=== PATIENT | female | born 1960 | race Caucasian/White ===

== ENCOUNTER → 2023-10-11 12:59 | Outpatient (REF) | payer MEDICARE, BC, SELFPAY | LOC: RAD 12:59 | PROVIDERS: ATTENDING PHYSICIAN Internal Medicine | DX: M81.0 Age-related osteoporosis without current pathological fracture (principal) | CPT/HCPCS: 77080 ==

== ENCOUNTER → 2024-06-12 13:06 | Outpatient (REF) | payer MEDICARE, BC, SELFPAY | LOC: RAD 13:06 | PROVIDERS: ATTENDING PHYSICIAN Nurse Practitioner Adult Health; FAMILY PHYSICIAN Internal Medicine | DX: R07.89 Other chest pain (principal); I49.8 Other specified cardiac arrhythmias | CPT/HCPCS: 71046 ==

== ENCOUNTER 2024-08-20 15:45 | Outpatient (RCR) | payer MEDICARE, BC, SELFPAY | END 2024-08-20 23:59 | disposition home or self-care (01) | LOC: RPT 15:45 | PROVIDERS: ATTENDING PHYSICIAN Surgery; FAMILY PHYSICIAN Internal Medicine | DX: N31.9 Neuromuscular dysfunction of bladder, unspecified (principal); Z73.6 Limitation of activities due to disability | CPT/HCPCS: 97140; 97163; 97530 ==

== ENCOUNTER 2024-09-17 15:56 | Outpatient (RCR) | payer MEDICARE, BC, SELFPAY | END 2024-09-17 23:59 | disposition home or self-care (01) | LOC: RPT 15:56 | PROVIDERS: ATTENDING PHYSICIAN Surgery; FAMILY PHYSICIAN Internal Medicine | DX: N31.9 Neuromuscular dysfunction of bladder, unspecified (principal); Z73.6 Limitation of activities due to disability | CPT/HCPCS: 97110; 97112; 97530 ==

== ENCOUNTER 2024-09-24 18:21 | Outpatient (RCR) | payer MEDICARE, BC, SELFPAY | END 2024-09-24 23:59 | disposition home or self-care (01) | LOC: RPT 18:21 | PROVIDERS: ATTENDING PHYSICIAN Surgery; FAMILY PHYSICIAN Internal Medicine | DX: N31.9 Neuromuscular dysfunction of bladder, unspecified (principal); Z73.6 Limitation of activities due to disability | CPT/HCPCS: 97014; 97110; 97112; 97530 ==

== ENCOUNTER 2024-10-14 17:33 | Emergency (ER) | payer MEDICARE, BC, SELFPAY ==
[2024-10-14 17:35] VITALS: BP 131/86
[2024-10-14 17:58] LABS: Hematocrit 40.5 % (37.0-47.0); Hemoglobin 14.0 g/dL (12.0-16.0); Mean Corp Hgb Conc. 34.6 g/dL (33.0-37.0); Mean Corpuscular Volume 91.2 fL (81.0-99.0); Nucleated Red Blood Cells % 0 %; Platelet Count 316 10^3/uL (130-400); Red Cell Dist. Width 12.3 % (11.5-14.5)
[2024-10-14 18:22] LABS: Troponin I < 0.012 ng/ml
[2024-10-14 18:32] LABS: ALT (SGPT) 18 U/L (0-35); AST (SGOT) 19 U/L (14-36); Albumin 4.7 g/dl (3.5-5.0); Alkaline Phosphatase 48 U/L (38-126); Blood Urea Nitrogen 13 mg/dl (7-17); Calcium 10.7 mg/dl (8.4-10.2); Carbon Dioxide 25 mmol/L (22-30); Chloride 107 mmol/L (98-107); Glucose 117 mg/dl (70-99); Potassium 3.8 mmol/L (3.5-5.1); Sodium 140 mmol/L (135-145); Total Protein 7.9 g/dl (6.3-8.2); eGFR > 60.00
[2024-10-14 19:33] VITALS: BMI 24.4
--- NOTE | 2024-10-14 21:27 | ED.GENMED ---
History of Present Illness
General
Chief Complaint: Dizziness
Time Seen by Provider: 10/14/24 20:04
Course
Orders/Labs/Results
Orders:
Orders
10/14/24 17:38
Electrocardiogram (*1) Urgent
Reason for Study: Chest Pain
EKG- Treatment ONCE
10/14/24 17:50
Complete Blood Count/With Diff Urgent
Comprehensive Metabolic Panel Urgent
Troponin I Urgent
10/14/24 21:15
CT Head W/o Iv Contrast Urgent
Comment:
Reason For Exam: dizziness, hit head 6 wk ago, MS in remission
10/14/24 21:27
Orthostatic VS- Treatment ONCE
Abnormal Lab Results
10/14/24
17:50
MCH 31.5 H pg
(27.0-31.0)
Absolute Monos (auto) 0.7 H 10^3/uL
(0.1-0.6)
Glucose 117 H mg/dl
(70-99)
Calcium 10.7 H mg/dl
(8.4-10.2)
10/14/24 17:50
10/14/24 17:50
Vital Signs
Initial and Last Documented VS:
Initial Vital Signs
Temp Pulse Resp BP Pulse Ox
97.5 F 65 18 131/86 99
10/14/24 17:35 10/14/24 17:35 10/14/24 17:35 10/14/24 17:35 10/14/24 17:35
Last Documented Vital Signs
Temp Pulse Resp BP Pulse Ox
97.5 F 60 17 131/86 99
10/14/24 17:35 10/14/24 21:15 10/14/24 21:15 10/14/24 17:35 10/14/24 17:35
*Pulse Oximetry
SaO2: 99
Oxygen Mode of Delivery: Room air
ED Attending Note
ED Attending Note
Patient seen and examined by attending physician: Yes
I performed a history and physical exam of patient and discussed management with resident, I reviewed resident's note and agree with documented findings and plan of care.: Yes
ED Attending Note:
64-year-old female history of MS recent increase the dose of her medication for urinary retention they later she developed dizziness worse with standing, she did have a fall a month or so ago struck her head here she is nonfocal neurologic exam she
is cooperative, normal mental status, labs noted EKG notable check CT of the head, orthostatics, in the meantime tell her to decrease dose of her med to her prior dose and follow-up with her outpatient physicians
-
Portions of this chart may have been created with voice recognition software.� Occasional wrong word or��sound alike� substitutions may have occurred due to the inherent limitations of voice recognition software.
Discharge Plan
Departure
Prescriptions:
No Action
cefdinir 300 MG capsule
300 mg PO BID Qty: 10 0RF
Referrals:
Em Davila MD [Family Provider, Internal Medicine]
Interventions
Interventions:
*Risk Screen - Suicide Last Done: 10/14/24 17:35
*General Assessment Last Done: 10/14/24 17:35
*Neglect/Abuse Screening Last Done: 10/14/24 19:33
*ED- Fall Risk Assessment Last Done: 10/14/24 19:33
*ED COVID-19 Vaccine History Last Done: 10/14/24 19:33
ED- Neurological Assessment Last Done: 10/14/24 19:33
ED- Cardiac Assessment Last Done: 10/14/24 19:33
Discharge Date and Time
Print Language: GERMAN
--- NOTE | 2024-10-14 21:29 | ED.GENMED ---
History of Present Illness
General
Chief Complaint: Dizziness
Source: patient and family
Exam Limitations: none
Time Seen by Provider: 10/14/24 20:04
Nursing documentation reviewed up to this point in time: agreed with
History of Present Illness
History of Present Illness:
Ms. Brooks Tucker is a 64-year-old female with a PMH notable for multiple sclerosis (in remission, diagnosed 30 years ago), panic disorder (on lorazepam), cardiac ablation (for A-fib) who is presenting for dizziness.
She noted history of dizziness that started 4 months ago 4 months ago when she started taking mirabegron for urinary retention, prescriber her urologist. She is aware that mirabegron is usually prescribed for urinary urgency. She came to the ED
today because she felt very dizzy yesterday. She also tried for the first time doubling her dose of mirabegron yesterday. Her urologist had told her dose but the patient has not taken the increased dose until yesterday. She she has fallen
multiple times when she felt dizzy. Her last fall was Father's Day weekend 6 weeks ago. She hit the back of her head but did not lose consciousness. She did not seek medical attention.
She describes the sensation as more of the room spinning, but it is hard for distinguish it from feeling faint. She holds onto counters in the wall when she walks as a precaution now.
She notices her vertigo is worse when she also drinks alcohol or takes lorazepam, which she does when she feels anxious.
She endorses feeling chest pain 2 days ago, which she attributes to feeling [place]. She endorses feeling her heart racing in the ED triage.
She denies recent URI symptoms.
Review of Systems
Review of Systems
All Other Systems: ROS reviewed and negative except as documented in HPI and ROS
EENT: Reports no symptoms (No ear pain)
Respiratory: Reports no symptoms
: Reports no symptoms (Retention)
Neurological: Reports other (Remaining left upper and lower limb weakness and numbness, and decreased vision in left eye from multiple sclerosis)
Psychiatric: Reports anxiety
Phy Exam
Physical Exam
Physical Exam:
General: In no acute distress, moist mucous membranes
Neuro:
Lenore-Hallpike maneuver negative
Left pupil more dilated than right
Symmetric palate elevation
Bilateral tympanic membranes pearly
5 strength to elbow flexion extension, shoulder flexion extension. leg with symmetric
Cardiovascular: Normal rate and rhythm
No pedal edema
Lungs: CTAB
GI: No tenderness to deep palpation
Normal bowel sounds
Course
Orders/Labs/Results
Orders:
Orders
10/14/24 17:38
Electrocardiogram (*1) Urgent
Reason for Study: Chest Pain
EKG- Treatment ONCE
10/14/24 17:50
Complete Blood Count/With Diff Urgent
Comprehensive Metabolic Panel Urgent
Troponin I Urgent
10/14/24 21:15
CT Head W/o Iv Contrast Urgent
Comment:
Reason For Exam: dizziness, hit head 6 wk ago, MS in remission
10/14/24 21:27
Orthostatic VS- Treatment ONCE
10/14/24 21:28
Orthostatic VS- Treatment ONCE
Abnormal Lab Results
10/14/24
17:50
MCH 31.5 H pg
(27.0-31.0)
Absolute Monos (auto) 0.7 H 10^3/uL
(0.1-0.6)
Glucose 117 H mg/dl
(70-99)
Calcium 10.7 H mg/dl
(8.4-10.2)
10/14/24 17:50
10/14/24 17:50
Vital Signs
Initial and Last Documented VS:
Initial Vital Signs
Temp Pulse Resp BP Pulse Ox
97.5 F 65 18 131/86 99
10/14/24 17:35 10/14/24 17:35 10/14/24 17:35 10/14/24 17:35 10/14/24 17:35
Last Documented Vital Signs
Temp Pulse Resp BP Pulse Ox
97.5 F 58 11 105/82 99
10/14/24 17:35 10/14/24 22:25 10/14/24 22:25 10/14/24 21:37 10/14/24 21:31
MDM/Problems Addressed
Differential Diagnosis Includes:
Orthostatic hypotension
Medication side effect
Medication synergistic effects: Alcohol, lorazepam
Bradycardia
Chronic subdural hematoma
Normal pressure hydrocephalus
Labyrinthitis
Vestibular neuritis
Less likely:
BPPV
Other arrhythmia
MDM/Problems Addressed:
Ms. Gracia Tucker is a 74-year-old female with PMH notable for multiple sclerosis who is presenting with dizziness, potentially due to normal pressure hydrocephalus. It may also be due to bradycardia, medication side effect, and/or medication
synergistic effect.
Orthostats: Positive. Systolic blood pressure dropped from 127 to 105 after standing. Diastolic with pressure and heart rate did not change significantly
CT head: slightly enlarged ventricles for age. Normal pressure hydrocephalus cannot be ruled out
CMP and CBC: Within normal limits
EKG: Sinus bradycardia
Troponin: Within normal limits
The patient has bradycardia and is on carvedilol 12.5 mg daily. Since bradycardia can contribute to vertigo, we will halve her dose.
Patient was informed that her orthostatic vitals test was positive. She declined IV fluids and was cooperative with drinking more fluids orally.
Patient was recommended to take mirabegron at her usual, lower dose (before the doubled dose).
Patient was informed she may have normal pressure hydrocephalus and to follow-up with her neurologist.
Chronic conditions affecting care: Other (Multiple sclerosis, urinary retention)
*Pulse Oximetry
SaO2: 99
Oxygen Mode of Delivery: Room air
Patient hypoxic: no
*EKG
Interpreted by ED Provider?: Yes
Interpretation: normal
Comparison EKG: no comparison EKG present
Heart Rate: 52
Rate: bradycardiac
Rhythm: sinus
[place]: normal axis
Interval: normal interval
QRS Pattern: normal QRS
Ischemia: no ischemia
*Repair Armature Winder Interpretation
Rate: normal
Interpretation: normal
Rhythm: sinus
*Critical Care Note
Total Time (30-74mins, 75-104mins- exclusive of procedures): Not Applicable
ED Attending Note
-
Portions of this chart may have been created with voice recognition software.� Occasional wrong word or��sound alike� substitutions may have occurred due to the inherent limitations of voice recognition software.
Discharge Plan
Departure
Patient Disposition: Home (Routine Discharge)
Date of Disposition: 10/14/24
Time of Disposition: 21:45
Patient with high blood pressure during this ER visit?: Yes
Condition: Good
Discharge Problem:
Vertigo, Normal pressure hydrocephalus
Instructions: Hydrocephalus (DC), Vertigo - ED discharge instructions
Prescriptions:
New
carvedilol 6.25 mg tablet
6.25 mg PO ONCE Qty: 14 0RF
No Action
cefdinir 300 MG capsule
300 mg PO BID Qty: 10 0RF
Referrals:
Em Davila MD [Family Provider, Internal Medicine]
Activity Restrictions/Additional Instructions:
Dear Ms. Gracia Tucker, you came to the ED due to dizziness. It may be due to a slower heart rate. Thus we lowered your dose of carvedilol (8 heart rate slowing medication) from 12.5 mg to 6.25 mg daily. Please follow-up with your primary care
provider another your dizziness seems to decrease this dose, for refills of this dose of carvedilol, or to adjust your blood pressure/heart rate medications further.
Your vertigo may also be due to being dehydrated. Please try to member to drink enough fluids.
Since it is possible mirabegron is causing your dizziness please take it at the nondoubled dose, and follow-up with your urologist.
Your ventricles in your brain are slightly large. You may have normal pressure hydrocephalus. Please follow-up with your neurologist to further investigate, compare with prior head imaging, and manage this.
Please return to the ED if you develop intense headache, inability to walk, syncope, seizures, shortness of breath, chest pain
Interventions
Interventions:
*Risk Screen - Suicide Last Done: 10/14/24 17:35
*General Assessment Last Done: 10/14/24 17:35
*Neglect/Abuse Screening Last Done: 10/14/24 19:33
*ED- Fall Risk Assessment Last Done: 10/14/24 19:33
*ED COVID-19 Vaccine History Last Done: 10/14/24 19:33
ED- Neurological Assessment Last Done: 10/14/24 19:33
ED- Cardiac Assessment Last Done: 10/14/24 19:33
Discharge Date and Time
Print Language: NEPALI
[2024-10-14 21:33] VITALS: BP 122/98
[2024-10-14 21:35] VITALS: BP 127/78
[2024-10-14 21:37] VITALS: BP 105/82
[2024-10-14 21:40] VITALS: BP 105/82; BP 122/98; BP 127/78; PULSE 62; PULSE 64; PULSE 72
== END 2024-10-14 23:40 | disposition home or self-care (01) ==
LOC: EMR 17:33
PROVIDERS: Emergency Medicine; EMERGENCY PHYSICIAN Emergency Medicine; FAMILY PHYSICIAN Internal Medicine
DX: R42 Dizziness and giddiness (principal); R06.02 Shortness of breath; G91.2 (Idiopathic) normal pressure hydrocephalus; R00.0 Tachycardia, unspecified; M62.81 Muscle weakness (generalized); R63.4 Abnormal weight loss; R20.0 Anesthesia of skin; R07.9 Chest pain, unspecified; G35 Multiple sclerosis; I10 Essential (primary) hypertension; I48.91 Unspecified atrial fibrillation; F41.0 Panic disorder [episodic paroxysmal anxiety]; H54.52A1 Low vision left eye category 1, normal vision right eye; F41.9 Anxiety disorder, unspecified; Z79.899 Other long term (current) drug therapy; R29.6 Repeated falls; Z90.49 Acquired absence of other specified parts of digestive tract; Z88.8 Allergy status to other drugs, medicaments and biological substances
CPT/HCPCS: 99285; 51701; 70450; 80053; 84484; 85025; 93005

== ENCOUNTER 2024-10-26 14:18 | Emergency (ER) | payer MEDICARE, BC, SELFPAY ==
[2024-10-26 14:28] VITALS: BP 130/85
[2024-10-26 14:54] LABS: Hematocrit 40.9 % (37.0-47.0); Hemoglobin 14.0 g/dL (12.0-16.0); Mean Corp Hgb Conc. 34.2 g/dL (33.0-37.0); Mean Corpuscular Volume 91.3 fL (81.0-99.0); Nucleated Red Blood Cells % 0 %; Platelet Count 331 10^3/uL (130-400); Red Cell Dist. Width 12.0 % (11.5-14.5)
[2024-10-26 15:10] LABS: ALT (SGPT) 20 U/L (0-35); AST (SGOT) 20 U/L (14-36); Albumin 4.9 g/dl (3.5-5.0); Alkaline Phosphatase 58 U/L (38-126); Blood Urea Nitrogen 15 mg/dl (7-17); Calcium 10.0 mg/dl (8.4-10.2); Carbon Dioxide 25 mmol/L (22-30); Chloride 105 mmol/L (98-107); Glucose 109 mg/dl (70-99); Potassium 3.7 mmol/L (3.5-5.1); Sodium 141 mmol/L (135-145); Total Protein 8.0 g/dl (6.3-8.2); eGFR > 60.00
[2024-10-26 17:37] VITALS: BP 142/83
--- NOTE | 2024-10-26 18:02 | ED.GENMED ---
History of Present Illness
General
Chief Complaint: Dizziness
Time Seen by Provider: 10/26/24 17:40
History of Present Illness
History of Present Illness:
PAST MEDICAL HISTORY AND REVIEW OF OLD RECORDS
- The patient has a history of MS and high blood pressure
EKG
- Sinus 61, normal axis, no acute ST abnormality
LABS
- CBC and chemistries unremarkable
UPDATE
-
Note:
CHIEF COMPLAINT(S)
Dizziness and fainting spell.
HISTORY OF PRESENT ILLNESS
The patient is a 64-year-old female with a history of multiple sclerosis (MS) and recent medication adjustments, who presented after experiencing a fainting spell at home. A neighbor, who is a nurse, reported that the patient had low blood pressure
at the time of fainting. The neighbor measured the blood pressure and initially thought it was abnormal, but the reading appeared normal upon clarification. The patient denied feeling dizzy currently and stated that the episode had resolved.
The patient has been experiencing dizziness that she attributes to her medication regimen, which has been ongoing for several months. She stopped taking mirabegron (Myrbetriq) for bladder issues a week ago. She is also withdrawing from lorazepam and
had previously stopped taking zolpidem (Ambien) weeks ago. The patient last took a half dose of lorazepam a couple of days ago.
Vital signs in the emergency room (ER) were stable, with normal blood pressure, excellent heart rate, and oxygen saturation at 98%. The patient had difficulty with fluid intake prior to the EMS arrival but is now able to drink fluids and urinate
adequately.
The patient typically self-catheterizes due to MS, and reported difficulty catheterizing in the morning, leading to dehydration. A scan was performed during a previous ER visit on the due to similar symptoms, and an MRI has been scheduled by
the production machine operator to explore other possible causes.
She has a family history of cancers, and there is concern about whether the symptoms are due to medication withdrawal or an underlying medical condition. The patient was seen by Dr. Johanna Roach recently, and it was suggested that the dizziness
could be related to medications.
The patient reports a change in behavior, becoming more active at home after reducing her medication intake. Occasional dizziness persists but is less bothersome.
Additional factors considered include possible inner ear issues contributing to dizziness, as the patient experiences symptoms consistent with vestibular imbalance common in the elderly.
PAST MEDICAL AND SURIGICAL HISTORY
Multiple sclerosis.
CHRONIC MEDICAL CONDITIONS SIGNIFICANTLY AFFECTING CARE
Multiple sclerosis.
SOCIAL DETERMINANTS AFFECTING HEALTH
The patient reported financial concerns that impact medication management.
REVIEW OF SYSTEMS
- General: Episodes of fainting; dizziness.
- Cardiovascular: Reports of low blood pressure at time of fainting, now resolved.
- Neurological: Denies current dizziness or weakness; difficulty self-catheterizing attributed to MS.
- Gastrointestinal: Difficulty with fluid intake; now hydrating well.
PHYSICAL EXAM
- General: Well appearing in no distress
- HEENT: Moist oral mucosa
- Cardiovascular: No murmurs, normal heart rate, regular rhythm, No chest wall tenderness
- Pulmonary: No respiratory distress, breath sounds are clear and equal
- Abdomen: Soft with no peritoneal signs, no tenderness
- Neurologic: Excellent strength all extremities, no coordination deficits
- Psychiatric: Appropriate mental status, normal insight and judgement
- Extremities: Nontender, no edema, moves all extremities equally
- Skin: No rash, no lesions
PROBLEM LIST
Acute:
- Dizziness and fainting spell.
Chronic:
- Multiple sclerosis.
PLAN
- Discharge home with monitoring for dizziness and hydration status.
- Follow up on scheduled MRI and production machine operator appointment.
- Continue withdrawal process from lorazepam under supervision.
- Continue self-care strategies for fluid intake and hydration.
DIFFERENTIAL DIAGNOSIS
The Differential Diagnosis includes, in no particular order and is not limited to:
1. Medication-induced dizziness or withdrawal.
2. Orthostatic hypotension.
3. Multiple sclerosis exacerbation.
4. Vestibular vertigo.
5. Dehydration.
6. Electrolyte imbalance.
7. Anemia.
8. Cardiovascular syncope.
9. Cerebrovascular event.
10. Inner ear pathology.
Disposition:
SUMMARY OF ENCOUNTER
The patient, a 64-year-old female with a history of multiple sclerosis and recent medication adjustments, presented to the emergency department after experiencing a fainting spell at home. The patient reported dizziness in the context of withdrawing
from lorazepam and recently discontinuing mirabegron for bladder issues. Initial assessment showed stable vitals, with normal blood pressure and heart rate. Cardiac monitoring and EKG were unremarkable, and her neurological examination was normal.
The primary concerns were related to potential medication-induced dizziness and dehydration due to difficulty in self-catheterizing related to MS. Considering her stable condition and resolved symptoms, she was monitored for dizziness and hydration
status.
DISPOSITION
Discharge.
ASSESSMENT
Dizziness and fainting spell, likely related to medication withdrawal and potential dehydration.
PLAN
Discharge home with monitoring for dizziness and hydration status. Follow-up on the scheduled MRI and production machine operator appointment. Continue withdrawal process from lorazepam under supervision. Reinforce self-care strategies for fluid intake and
hydration.
PATIENT EDUCATION AND COUNSELING
The patient was educated on the importance of maintaining adequate hydration and monitoring for any further episodes of dizziness or fainting. She was advised to follow up with her production machine operator and neurologist for further management of her
medication regimen and any underlying conditions.
FOLLOW-UP INSTRUCTIONS
Follow-up with the production machine operator as scheduled and continue with neurologist consultations for MS management.
MEDICATION RECONCILIATION
The patient is currently withdrawing from lorazepam, with the last half-dose taken two days ago. She has stopped taking zolpidem previously and recently discontinued mirabegron.
MEDICAL DECISION MAKING
- Number and Complexity of Problems Addressed: Chronic conditions affecting care include multiple sclerosis.
- Data:
Category 1: Unremarkable EKG and cardiac monitoring. Normal neurological examination.
Category 2: Input from independent historian regarding initial hypotension resolved at presentation.
- Risk: Consideration of Admission/Observation: Escalation of care including admission/observation was considered given the complexity and risk of the patients presenting complaint, but the patient is deemed safe for outpatient management with close
follow-up due to reassuring work-up and stable vitals.
DIAGNOSIS
- Orthostatic hypotension (I95.1)
- Dizziness and giddiness (R42)
Phy Exam
Physical Exam
Physical Exam:
See HPI
Course
Orders/Labs/Results
Orders:
Orders
10/26/24 14:30
Electrocardiogram (*1) Urgent
Reason for Study: Vertigo / Dizzy
EKG- Treatment ONCE
10/26/24 14:44
Complete Blood Count/With Diff Urgent
Comprehensive Metabolic Panel Urgent
Abnormal Lab Results
10/26/24
14:44
MCH 31.3 H pg
(27.0-31.0)
Glucose 109 H mg/dl
(70-99)
10/26/24 14:44
10/26/24 14:44
Vital Signs
Initial and Last Documented VS:
Initial Vital Signs
Temp Pulse Resp BP Pulse Ox
36.7 C 66 16 130/85 98
10/26/24 14:28 10/26/24 14:28 10/26/24 14:28 10/26/24 14:28 10/26/24 14:28
Last Documented Vital Signs
Temp Pulse Resp BP Pulse Ox
36.7 C 66 16 130/85 98
10/26/24 14:28 10/26/24 14:28 10/26/24 14:28 10/26/24 14:28 10/26/24 14:28
*Pulse Oximetry
SaO2: 98
Oxygen Mode of Delivery: Room air
Patient hypoxic: no
*Critical Care Note
Total Time (30-74mins, 75-104mins- exclusive of procedures): Not Applicable
ED Attending Note
-
Portions of this chart may have been created with voice recognition software.� Occasional wrong word or��sound alike� substitutions may have occurred due to the inherent limitations of voice recognition software.
Discharge Plan
Departure
Patient Disposition: Home (Routine Discharge)
Date of Disposition: 10/26/24
Time of Disposition: 18:01
Patient with high blood pressure during this ER visit?: Yes
Discharge Problem:
Dizziness
Instructions: Dizziness, BLOOD PRESSURE
Prescriptions:
No Action
cefdinir 300 MG capsule
300 mg PO BID Qty: 10 0RF
carvedilol 6.25 mg tablet
6.25 mg PO ONCE Qty: 14 0RF
Activity Restrictions/Additional Instructions:
The cause of your symptoms may be multifactorial. Your white blood cell count and hemoglobin are both normal. Basic chemistry levels are also normal. Your EKG is unremarkable. Follow-up with your doctors as an outpatient.
Interventions
Interventions:
*Risk Screen - Suicide Last Done: 10/26/24 14:35
Discharge Date and Time
Print Language: SPANISH
== END 2024-10-26 18:17 | disposition home or self-care (01) ==
LOC: EMR 14:18
PROVIDERS: Student in an Organized Health Care Education/Training Program; EMERGENCY PHYSICIAN Emergency Medicine; FAMILY PHYSICIAN Internal Medicine
DX: I95.1 Orthostatic hypotension (principal); R42 Dizziness and giddiness; G35 Multiple sclerosis
CPT/HCPCS: 99284; 80053; 85025; 93005

== ENCOUNTER 2024-11-06 12:28 | Outpatient (RCR) | payer MEDICARE, BC, SELFPAY | END 2024-11-06 23:59 | disposition home or self-care (01) | LOC: RPT 12:28 | PROVIDERS: ATTENDING PHYSICIAN Surgery; FAMILY PHYSICIAN Internal Medicine | DX: N31.9 Neuromuscular dysfunction of bladder, unspecified (principal); Z73.6 Limitation of activities due to disability; R26.89 Other abnormalities of gait and mobility; R10.2 Pelvic and perineal pain; G35 Multiple sclerosis | CPT/HCPCS: 97112; 97530 ==

== ENCOUNTER 2024-11-25 14:24 | Outpatient (RCR) | payer MEDICARE, BC, SELFPAY | END 2024-11-25 23:59 | disposition home or self-care (01) | LOC: RPT 14:24 | PROVIDERS: ATTENDING PHYSICIAN Surgery; FAMILY PHYSICIAN Internal Medicine | DX: N31.9 Neuromuscular dysfunction of bladder, unspecified (principal); Z73.6 Limitation of activities due to disability; R26.89 Other abnormalities of gait and mobility; R10.2 Pelvic and perineal pain; G35 Multiple sclerosis | CPT/HCPCS: 97110; 97112; 97530 ==